=== PATIENT | female | born 1975 | race Two or more races ===

== ENCOUNTER 2021-06-12 09:17 | Emergency (ER) | payer MEDICAID ==
[~2021-06-12] VITALS: Ht 154.9 cm; Wt 68.0 kg
[2021-06-12 11:40] VITALS: BP 144/92
== END 2021-06-12 11:48 | disposition home or self-care (01) ==
LOC: ER 09:17
DX: S86.812A Strain of other muscle(s) and tendon(s) at lower leg level, left leg, initial encounter (principal); Z98.890 Other specified postprocedural states; X08.8XXA Exposure to other specified smoke, fire and flames, initial encounter; Y93.89 Activity, other specified; Y92.89 Other specified places as the place of occurrence of the external cause; Y99.8 Other external cause status
CPT/HCPCS: 93971